=== PATIENT | male | born 1945 | race Caucasian/White ===

== ENCOUNTER 2017-06-26 16:38 | Emergency (ER) | payer MEDICARE, OTHER ==
[2017-06-26] MEDS ORDERED: TETANUS/DIPHTHERIA/PERTUSSIS 0.5 ML SYRINGE IM ONE (17:16)
[2017-06-26] MEDS ORDERED: AMOX/CLAV 875 MG/125 MG TABLET PO STA (17:16)
--- NOTE | 2017-06-26 17:22 | ED Physician Documentation ---
History of Present Illness - Stated complaint Stated Complaint: DOG BITE/R HAND - Chief complaint Chief Complaint: Wound - Additonal information Additional information: hx from pt 71 male [place] dog park by another persons immunized dog Review of Systems Skin: reports: Bite / sting PD PAST MEDICAL HISTORY - Present Medications Home Medications: Ambulatory Orders Medication Instructions Recorded Confirmed Amox/Clav 875/125 [Augmentin] 1 each PO Q12H #9 tablet 06/26/17 - Allergies Allergies/Adverse Reactions: Allergies Allergy/AdvReac Type Severity Reaction Status Date / Time No Known Drug Allergies Allergy Verified 06/26/17 16:45 PD ED PE NORMAL - Vitals Vital signs reviewed: Yes - Derm Derm: Other (1 cm bit dorsal aspect thenar region, tendon intact, MSV intact) Results - Vitals Vitals: Vital Signs - 24 hr 06/26/17 16:43 Temperature 36.4 C L Heart Rate 98 Respiratory 18 Rate Blood Pressure 146/96 H O2 Saturation 96 Oxygen O2 Source Room air PD MEDICAL DECISION MAKING - ED course ED course: wound cleansed tdap given proph augmentin wound precautions given Departure - Departure Disposition: 01 Home, Self Care Clinical Impression: Animal bite with open wound Condition: Good Instructions: ED Bite Animal General Prescriptions: Amox/Clav 875/125 [Augmentin] 1 each PO Q12H #9 tablet Comments: Keep the wound clean - wash with soap and water every day Take the augmentin twice a day for 5 days to prevent infection If signs of infection develop while you are travelling, go to an urgent care or ER for evaluation
[2017-06-26 17:50] VITALS: BP 148/100
== END 2017-06-26 17:50 | disposition home or self-care (01) ==
LOC: ED 16:38
DX: S61.451A Open bite of right hand, initial encounter (principal); W54.0XXA Bitten by dog, initial encounter; Y92.830 Public park as the place of occurrence of the external cause; Z23 Encounter for immunization
CPT/HCPCS: 90471; 90715; 99283; A9270

== ENCOUNTER 2023-09-10 21:40 | Outpatient (CLI) | payer MEDICARE, OTHER | END 2023-09-10 21:41 | disposition critical access hospital (66) | LOC: EMS 21:40 | DX: R29.898 Other symptoms and signs involving the musculoskeletal system (principal); G20.A1 Parkinson's disease without dyskinesia, without mention of fluctuations | CPT/HCPCS: A0425; A0429 ==

== ENCOUNTER 2023-09-10 22:10 | Observation (INO) | payer MEDICARE, OTHER ==
--- NOTE | 2023-09-10 22:19 | ED Physician Documentation ---
PD HPI FOCAL NEURO - Stated complaint Stated Complaint: R HAND NUMBNESS - History obtained from History obtained from: Patient - Additional information Additional information: 78-year-old male with history of Parkinson's disease, history of AAA repair, reported history of TIA presents by EMS from home for right arm weakness. Patient states that earlier this morning after eating breakfast he was in the shower when all of a sudden his right arm stopped working and he was unable to use the soap. He states that this resolved after approximately 10 minutes. Several hours went by in the day and approximately 1 hour prior to arrival jero ent had weakness in his entire right upper extremity lasting approximately 15 minutes, that then self resolved. After discussing with his they decided to call 911 for evaluation. Patient currently denies any complaints and states he feels back to his baseline. He takes daily Plavix, but does not take any other blood thinners. PD PAST MEDICAL HISTORY - Past Medical History Cardiovascular: Other - Past Surgical History Past Surgical History: No - Present Medications Home Medications: Ambulatory Orders Medication Instructions Recorded Confirmed Aspirin [Aspirin EC] 81 mg PO DAILY 09/10/23 09/10/23 Atorvastatin [Lipitor] 10 mg PO DAILY 09/10/23 09/10/23 Carbidopa/Levodopa 1 tab PO TID 09/10/23 09/10/23 [Carbidopa-Levodopa 25-100 Tab] Fluoxetine HCl [Prozac] 60 mg PO DAILY 09/10/23 09/10/23 NIFEdipine [Procardia Xl] 30 mg PO DAILY 09/10/23 09/10/23 Propranolol HCl 20 mg PO DAILY 09/10/23 09/10/23 Rivastigmine Tartrate 4.5 mg PO BID 09/10/23 09/10/23 [Rivastigmine] hydrOXYzine HCL [Hydroxyzine HCl] 25 mg PO PRN PRN 09/10/23 09/10/23 traZODone [Desyrel] 50 mg PO HS 09/10/23 09/10/23 - Allergies Allergies/Adverse Reactions: Allergies Allergy/AdvReac Type Severity Reaction Status Date / Time No Known Drug Allergies Allergy Verified 09/10/23 22:24 - Social History Does the pt smoke?: No Smoking Status: Never smoker Results - Vitals Vitals: Vital Signs - 24 hr 09/10/23 09/10/23 09/11/23 22:15 22:30 00:00 Temperature 36.8 C Heart Rate 72 81 73 Respiratory 16 16 16 Rate Blood Pressure 193/94 H 184/89 H 183/94 H O2 Saturation 96 98 96 Oxygen O2 Source Room air - Labs Labs: Laboratory Tests 09/10/23 09/10/23 09/10/23 22:10 22:10 22:28 WBC 5.8 RBC 4.43 L Hgb 14.0 Hct 42.5 MCV 95.9 H MCH 31.6 H MCHC 32.9 RDW 12.8 Plt Count 181 MPV 9.6 Neut # (Auto) 3.7 Lymph # (Auto) 1.2 L O'Brien # (Auto) 0.7 Eos # (Auto) 0.1 Baso # (Auto) 0.0 Absolute Nucleated RBC 0.00 Nucleated RBC % 0.0 PT 12.5 INR 1.1 Sodium 138 Potassium 4.0 Chloride 105 Carbon Dioxide 27 Anion Gap 6.0 BUN 28 H Creatinine 1.1 Estimated GFR (MDRD) 65 L Glucose 104 Calcium 9.2 Magnesium 2.3 Total Bilirubin 0.6 AST 14 ALT 14 Alkaline Phosphatase 90 Total Protein 7.5 Albumin 4.2 Globulin 3.3 Albumin/Globulin Ratio 1.3 PD Medical Decision Making - ED course Complexity details: reviewed old records, reviewed results, re-evaluated patient, considered differential, d/w patient ED course: Well-appearing patient with 2 episodes of transient weakness in his upper extremity. Patient describes that he was not able to use his right arm at all due to his weakness. On my exam patient's NIH score is 0, however based on concerning history he was given full dose aspirin on arrival. CT brain, CT angio negative for acute CVA. There appears to be some prior occlusion in the posterior circulation, however patient symptoms or not consistent with a posterior circulation occlusion and this is likely chronic longstanding. There has been no recurrence of his weakness since he has been in the emergency department. plan to admit patient for MRI and further evaluation. Departure - Departure Disposition: [facility] DC/Drew Clinical Impression: Right arm weakness Condition: Stable
[2023-09-10] MEDS ORDERED: iohexoL-300 100 ML VIAL ONE (22:20)
[2023-09-10 22:24] LABS: BASOPHILS % (AUTO) 0.5 %; EOSINOPHILS # (AUTO) 0.1 10^3/uL (0.0-0.7); EOSINOPHILS % (AUTO) 2.1 %; HCT - HEMATOCRIT 42.5 % (42.0-52.0); LYMPHOCYTES # (AUTO) 1.2 10^3/uL (1.5-3.5); MEAN CORPUSCULAR HEMOGLOBIN 31.6 pg (27.0-31.0); MEAN CORPUSCULAR HGB CONC 32.9 g/dL (32.0-36.0); MEAN CORPUSCULAR VOLUME 95.9 fL (80.0-94.0); MEAN PLATELET VOLUME 9.6 fL (7.4-11.4); MONOCYTES # (AUTO) 0.7 10^3/uL (0.0-1.0); MONOCYTES % (AUTO) 12.2 %; NEUTROPHILS # (AUTO) 3.7 10^3/uL (1.5-6.6); NEUTROPHILS % (AUTO) 63.9 %; PLT - PLATELET COUNT 181 10^3/uL (130-450); RED BLOOD COUNT 4.43 10^6/uL (4.70-6.10); RED CELL DISTRIBUTION WIDTH 12.8 % (12.0-15.0); WHITE BLOOD COUNT 5.8 x10^3/uL (4.8-10.8)
[2023-09-10] MEDS: ASPIRIN CHEW 81 MG TABLET PO STA (22:31)
[2023-09-10 22:42] LABS: ALBUMIN 4.2 g/dL (3.2-5.5); ALBUMIN/GLOBULIN RATIO 1.3 (1.0-2.2); BILIRUBIN,TOTAL 0.6 mg/dL (0.2-1.0); CALCIUM 9.2 mg/dL (8.5-10.3); CREATININE 1.1 mg/dL (0.6-1.3); MAGNESIUM 2.3 mg/dL (1.7-2.3); TOTAL PROTEIN 7.5 g/dL (6.4-8.9)
[2023-09-10 22:56] LABS: INR 1.1 (0.8-1.2); PT - PROTHROMBIN TIME 12.5 secs (9.9-12.6)
[2023-09-10] MEDS: iohexoL-300 100 ML VIAL IVP ONE (23:13)
--- NOTE | 2023-09-10 23:36 | XRAY Report ---
PROCEDURE: Chest 1V INDICATIONS: INTERMITTENT R ARM WEAKNESS TECHNIQUE: One view of the chest was acquired. COMPARISON: None. FINDINGS: Surgical changes and devices: None. Lungs and pleura: No pleural effusions or pneumothorax. Lungs are clear. Mediastinum: Mediastinal contours appear normal. Heart size is enlarged. Bones and chest wall: No suspicious bony lesions. Overlying soft tissues appear unremarkable. IMPRESSION: No acute cardiopulmonary process. Reviewed by: Lauren Valenzuela MD on 09/10/2023 11:35 PM PDT Approved by: Lauren Valenzuela MD on 09/10/2023 11:35 PM PDT Station ID: [id number]
--- NOTE | 2023-09-10 23:39 | CT Report ---
PROCEDURE: Head WO INDICATIONS: TRANSIENT R ARM WEAKNESS X TODAY TECHNIQUE: Noncontrast 4.5 mm thick angled axial sections acquired from the foramen magnum to the vertex. For r adiation dose reduction, the following was used: automated exposure control, adjustment of mA and/or kV according to patient size. COMPARISON: CTA head and neck 09/10/2023 FINDINGS: Image quality: Excellent. The ventricular system and cortical sulci demonstrate atrophy, consistent for patient's stated age. There are areas of hypodensity in the periventricular and subcortical white matter. There is no acut e intra or extra-axial fluid collection. No acute hemorrhage, mass lesion or midline shift. Brainst em is unremarkable. Low-attenuation is present in the right parietal occipital lobe consistent with remote infarction. Globes are symmetrical. Sinuses are aerated. Osseous structures are intact. IMPRESSION: No acute intracranial pathology. Reviewed by: Lauren Valenzuela MD on 09/10/2023 11:37 PM PDT Approved by: Lauren Valenzuela MD on 09/10/2023 11:37 PM PDT Station ID: [id number]
--- NOTE | 2023-09-10 23:42 | CT Report ---
PROCEDURE: Angio Head/Neck INDICATIONS: TRANSIENT R ARM WEAKNESS X TODAY TECHNIQUE: After the administration of intravenous contrast, 1 mm thick sections acquired from the aortic arch t hrough the [place]. 3-dimensional qzztjhm-uglsessib-vorscajwiy (MIP) and/or volume renderin g reformats were acquired of the central intracranial vasculature and neck separately. For radiation dose reduction, the following was used: automated exposure control, adjustment of mA and/or kV acco rding to patient size. CONTRAST: Omni 300, 80mls COMPARISON: None. FINDINGS: Image quality: Diagnostic. HEAD CT: See separately dictated CT head report of 09/10/2023. HEAD CT ANGIOGRAPHY: Anterior circulation: Intracranial internal carotid arteries are normal in size and flow. The flow within the paired anterior cerebral arteries is normal and symmetric. The flow within the middle cer ebral arteries is normal and symmetric. The anterior communicating artery is seen. No aneurysms are seen. Posterior circulation: Right vertebral artery dominance. The left vertebral artery becomes markedly atretic at the level of C1 and C2. Distal aspect of the V4 segment is not opacified. No priors are av ailable for comparison. Flow within the posterior cerebral arteries is normal and symmetric. Basilar artery is unremarkable. No aneurysms are seen. NECK CT ANGIOGRAPHY: Carotid system: The great vessels demonstrate a conventional anatomy as they arise from the aortic a rch. The origins of the common carotid arteries appear patent. The common carotid arteries demonstr ate normal caliber and courses. The bifurcation regions are both widely patent. The internal caroti d arteries demonstrate normal calibers and courses. Posterior circulation: The origins of the vertebral arteries both appear widely patent. The more novak perior extracranial portions of both vertebral arteries also demonstrate normal courses and calibers. They join to form a normal appearing basilar artery. Soft tissues: Visualized neck soft tissues demonstrate no suspicious abnormalities. Bones: No suspicious bony lesions. Visualized cervical spine appears normally aligned. 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 While this could be congenital atresia/hypoplasi a, occlusion of indeterminate age cannot be excluded. There are no areas of hemodynamically significant stenosis, vascular occlusion or aneurysmal dilation within the neck vasculature. The estimate of stenosis included in the report of the imaging study was calculated using the NASCET method Reviewed by: Lauren Valenzuela MD on 09/10/2023 11:41 PM PDT Approved by: Lauren Valenzuela MD on 09/10/2023 11:41 PM PDT Station ID: [id number]
[2023-09-11] MEDS ORDERED: SODIUM CHLORIDE FLUSH 0.9% 10 ML SYRINGE IVP PRN (01:51)
[2023-09-11] MEDS ORDERED: ONDANSETRON 4 MG/2 ML VIAL IVP PRN (01:51)
[2023-09-11] MEDS ORDERED: LABETALOL 20 MG/4 ML SYRINGE IVP PRN (01:54)
--- NOTE | 2023-09-11 02:03 | HISTORY & PHYSICAL EXAMINATION ---
Chief Complaint - Chief Complaint Chief Complaint: right arm weakness History of Present Illness - Admitted From Admitted From:: home - History Obtained From History obtained from: patient Exam Limitations: telemedicine - History of Present Illness HPI Comment/Other: Mr Nick is a 78 yo M with history of Parkinson's disease, AAA repair, TIA (per chart review, patient denies any history of CVA). He presents to the ER for evaluation of right arm weakness. First episode occurred in the morning, after breakfast, felt like his right arm was weak and he could not move it, lasted approximately ~10 min. He had a second episode later in the afternoon, same right arm weakness, lasted approximately 15 minutes. He denies any numbness/weakness in any other extremities. Denies any residual RUE weakness/numbness/tingling at this time. He denies headaches, dizziness, vision changes, blurry vision. Reports history of migraine headaches, have never been associated with extremity weakness/numbness. Denies any recent fevers, chills, cough, n/v. History - Past Medical History Cardiovascular: reports: Other Neuro: reports: TIA, Parkinson's - Past Surgical History Cardiovascular: reports: AAA Meds/Allgy - Home Medications Home Medications: Ambulatory Orders Medication Instructions Recorded Confirmed Aspirin [Aspirin EC] 81 mg PO DAILY 09/10/23 09/10/23 Atorvastatin [Lipitor] 10 mg PO DAILY 09/10/23 09/10/23 Carbidopa/Levodopa 1 tab PO TID 09/10/23 09/10/23 [Carbidopa-Levodopa 25-100 Tab] Fluoxetine HCl [Prozac] 60 mg PO DAILY 09/10/23 09/10/23 NIFEdipine [Procardia Xl] 30 mg PO DAILY 09/10/23 09/10/23 Propranolol HCl 20 mg PO DAILY 09/10/23 09/10/23 Rivastigmine Tartrate 4.5 mg PO BID 09/10/23 09/10/23 [Rivastigmine] hydrOXYzine HCL [Hydroxyzine HCl] 25 mg PO PRN PRN 09/10/23 09/10/23 traZODone [Desyrel] 50 mg PO HS 09/10/23 09/10/23 - Allergies Allergies/Adverse Reactions: Allergies Allergy/AdvReac Type Severity Reaction Status Date / Time No Known Drug Allergies Allergy Verified 09/10/23 22:24 Review of Systems - Constitutional Constitutional: denies: Fatigue, Fever, Chills, Malaise - Eyes Eyes: denies: Blurred vision, Vision loss, Dipolpia - Ears, Nose & Throat Ears, Nose & Throat: denies: Hearing loss - Cardiovascular Cariovascular: denies: Chest pain, Lightheadedness - Respiratory Respiratory: denies: Cough, Sputum production - Gastrointestinal Gastrointestinal: denies: Abdominal pain, Nausea, Vomiting - Musculoskeletal Musculoskeletal: denies: Muscle pain, Back pain, Muscle aches - Integumentary Integumentary: denies: Rash, Pruritis - Neurological Neurological: reports: Focal weakness (RUE, resolved). denies: General weakness, Headache, Dizziness, Numbness - All Other Systems All Other Systems: reports: Reviewed and negative Exam - Vital Signs Reviewed Vital Signs: Yes Vital Signs: Vital Signs x48h Temp Pulse Resp BP Pulse Ox 09/11/23 00:00 73 16 183/94 H 96 09/10/23 22:30 81 16 184/89 H 98 09/10/23 22:15 36.8 C 72 16 193/94 H 96 - Physical Exam General Appearance: positive: No acute distress Eyes Bilateral: positive: Normal inspection Neck: positive: Nml inspection Respiratory: positive: No respiratory distress Back: positive: Nml inspection Skin: positive: Color nml, No rash Neurologic/Psychiatric: positive: Oriented x3, Motor nml (per patient), Sensation nml (per patient), Mood/affect nml Conclusion/Plan - Lab Results Lab results reviewed: Yes Fish Bones: 09/10/23 22:10 09/10/23 22:10 - Diagnostic Imaging Results Diagnostic Imaging Results: positive: Final report reviewed - EKG Results EKG Interpreted Independently: Yes EKG Findings: NSR 73 bpm - Other Other Results/Comments: RUE weakness, transient, resolved -Patient reports 2 episodes, ~10-15 min each with complete resolution -Current NIH 0 (per ER provider exam) -CT head unremarkable -CTA head/neck with occlusion of indeterminate age at distal C4 segment, 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
[2023-09-11] MEDS: ACETAMINOPHEN 325 MG TABLET PO PRN (03:17)
[2023-09-11] MEDS: traZODone 50 MG TABLET PO SCH (04:10)
[2023-09-11] MEDS: CARBIDOPA/LEVODOPA 25 MG/100 MG TABLET PO SCH (06:17)
[2023-09-11] MEDS: ASPIRIN 325 MG TABLET PO SCH (10:25)
[2023-09-11] MEDS: PROPRANOLOL 10 MG TABLET PO SCH (10:25)
[2023-09-11] MEDS: FLUoxetine 10 MG CAPSULE PO SCH (10:25)
[2023-09-11] MEDS: ENOXAPARIN 40 MG/0.4 ML SYRINGE SUBQ SCH (10:26)
[2023-09-11] MEDS: SODIUM CHLORIDE FLUSH 0.9% 10 ML SYRINGE IVP SCH (10:26)
[2023-09-11] MEDS: RIVASTIGMINE TARTRATE 1.5 MG PO SCH (10:29)
--- NOTE | 2023-09-11 12:30 | PHARMACY PROGRESS NOTE ---
- Best Possible Medication History Admit Date and Time: 09/11/23 0151 Processed by: Pharmacy Medications reviewed in ED?: Yes Medication History completed: Yes Patient Interview: Pt unable to participate Secondary Source(s): Insurance records (PT UNABLE TO PARTICIPATE. PT UNSURE OF MEDICATIONS. MED HX COMPELTED BASED OFF OF FILL HX.) As the person ultimately responsible for medication therapy, providers are able to order a medication from an existing home medication list in [facility] via the "Reconcile Routine" prior to Confirmation of that medication by direct support staff. Such practice is discouraged except when the physician, in their clinical judgment, deems that a medical need exists for a medication without regard to previous use.
[2023-09-11] MEDS: polyethylene glycoL 3350 17 GM PACKET PO SCH (16:27)
[2023-09-11] MEDS: SENNA 8.6 MG TABLET PO SCH (16:27)
[2023-09-11] MEDS: DOCUSATE SODIUM 250 MG CAPSULE PO SCH (16:28)
[2023-09-11] MEDS: lisinopriL 20 MG TABLET PO SCH (18:50)
--- NOTE | 2023-09-11 19:25 | MRI Report ---
PROCEDURE: Brain WO INDICATIONS: transient RUE weakness, please evaluate for CVA TECHNIQUE: Noncontrast axial T1 spin echo, axial T2 fast spin echo, sagittal and axial FLAIR, coronal T2 fast sp in echo, axial gradient echo, axial diffusion and ADC through the brain. COMPARISON: Correlation is made with CT examinations, 09/10/2023. FINDINGS: Image quality: Diagnostic, with note made of motion artifact. CSF Spaces: Basal cisterns are patent. No extra-axial fluid collections. Ventricles are normal in size and shape. Brain: No intracranial masses or hemorrhage. [place]/white matter interface is normal. Brainstem appe ars normal. Diffusion-weighted images demonstrate no acute ischemic insult. No chronic ischemic ins ults. Normal intravascular flow voids are present. Prominent perivascular spaces are incidentally n oted. Age-appropriate brain parenchymal volume loss and chronic small vessel ischemic change can be seen. Skull and face: Calvarium has normal marrow signal. Orbits appear normal. Sinuses: Sinuses and mastoids are clear. IMPRESSION: No findings of acute or subacute infarction are seen. Age-appropriate brain parenchymal volume loss and chronic small vessel ischemic change can be seen. Reviewed by: Ramiro Ceron MD on 09/11/2023 6:23 PM VETO Approved by: Ramiro Ceron MD on 09/11/2023 6:23 PM VETO Station ID: [id number]
[2023-09-11] MEDS ORDERED: traZODone 50 MG TABLET PO SCH (21:00)
[2023-09-11] MEDS: ATORVASTATIN 40 MG TABLET PO SCH (21:14)
[2023-09-12] MEDS: NIFEdipine ER 30 MG TABLET PO SCH (08:07)
[2023-09-12 08:19] VITALS: O2SAT 96
--- NOTE | 2023-09-12 08:36 | DISCHARGE SUMMARY ---
Discharge Summary Admit Date: 09/11/23 Discharge Date: 09/12/23 Discharging Provider: Korey Leblanc MD Primary Care Provider: Larry Ewing Code Status: Attempt Resuscitation Condition at Discharge: Stable Discharge Disposition: Home, Self Care Discharge Facility [facility]: [facility] - DIAGNOSES Admission Diagnoses: 1. Right Arm Weakness Discharge Diagnoses with Status of Each Condition: 1. Transient ischemic attack 2. Hypertension 3. Parkinson's dise - HPI History of Present Illness: History of Present Illness per Dr. Adam Beckwith history: Mr Nick is a 78 yo M with history of Parkinson's disease, AAA repair, TIA (per chart review, patient denies any history of CVA). He presents to the ER for evaluation of right arm weakness. First episode occurred in the morning, after breakfast, felt like his right arm was weak and he could not move it, lasted approximately ~10 min. He had a second episode later in the afternoon, same right arm weakness, lasted approximately 15 minutes. He denies any numbness/weakness in any other extremities. Denies any residual RUE weakness/numbness/tingling at this time. He denies headaches, dizziness, vision changes, blurry vision. Reports history of migraine headaches, have never been associated with extremity weakness/numbness. Denies any recent fevers, chills, cough, n/v. - HOSPITAL COURSE Hospital Course: Patient was admitted to the hospital under observation status. CT scan of the head revealed no significant abnormality. CT angiogram revealed a atretic appearance of the left vertebral artery at C1-C2 level with nonvisualized opaci fication at distal C4 segment of the left vertebral artery. Differential diagnosis would include congenital atresia/hypoplasia and occlusion of indeterminate age. There were no areas of hemodynamically significant stenosis, vascular occlusion or aneurysmal dilatation. MRI of the brain did not reveal any acute or subacute infarction. Treatment for hypertension was continued with patient's outpatient dose of nifedipine and and lisinopril. Telemetry did not reveal any significant arrhythmia. EKG demonstrated sinus rhythm prolonged HI interval. - ALLERGIES Allergies/Adverse Reactions: Allergies Allergy/AdvReac Type Severity Reaction Status Date / Time No Known Drug Allergies Allergy Verified 09/10/23 22:24 - MEDICATIONS Home Medications: Ambulatory Orders Medication Instructions Recorded Confirmed Aspirin [Aspirin EC] 81 mg PO DAILY 09/10/23 09/11/23 Atorvastatin [Lipitor] 10 mg PO DAILY 09/10/23 09/11/23 Carbidopa/Levodopa 1 tab PO TID 09/10/23 09/11/23 [Carbidopa-Levodopa 25-100 Tab] Fluoxetine HCl [Prozac] 60 mg PO DAILY 09/10/23 09/11/23 NIFEdipine [Procardia Xl] 30 mg PO DAILY 09/10/23 09/11/23 Propranolol HCl 20 mg PO DAILY 09/10/23 09/11/23 Rivastigmine Tartrate 4.5 mg PO BID 09/10/23 09/11/23 [Rivastigmine] traZODone [Desyrel] 50 mg PO HS 09/10/23 09/11/23 Lisinopril [Zestril] 40 mg PO DAILY 09/11/23 09/11/23 Atorvastatin [Lipitor] 40 mg PO QPM #30 tab 09/12/23 Clopidogrel [Plavix] 75 mg PO DAILY #21 tab 09/12/23 - PHYSICAL EXAM AT DISCHARGE General Appearance: positive: No acute distress, Alert Neck: positive: Thyroid nml, No JVD, Trachea midline Respiratory: positive: No respiratory distress, Breath sounds nml Cardiovascular: positive: Regular rate & rhythm, No murmur Skin: positive: No rash Extremities: positive: No pedal edema - LABS Result Diagrams: 09/10/23 22:10 09/10/23 22:10 - FOLLOW UP Follow Up: Please follow-up with Dr. Larry Ewing - TIME SPENT Time Spent in Discharge (Minutes): 28
--- NOTE | 2023-09-12 08:36 | Discharge Plan ---
Discharge Plan Problem Reviewed?: Yes Disposition: Home, Self Care Condition: Stable Prescriptions: Atorvastatin [Lipitor] 40 mg PO QPM #30 tab Clopidogrel [Plavix] 75 mg PO DAILY #21 tab Diet: Regular Activity Restrictions: Activity as Tolerated Shower Restrictions: Yes Driving Restrictions: Yes Weight Bearing: Full Weight Instruction Topics: TIA Health Concerns: History of Present Illness per Dr. Adam Beckwith history: Mr Nick is a 78 yo M with history of Parkinson's disease, AAA repair, TIA (per chart review, patient denies any history of CVA). He presents to the ER for evaluation of right arm weakness. First episode occurred in the morning, after breakfast, felt like his right arm was weak and he could not move it, lasted approximately ~10 min. He had a second episode later in the afternoon, same right arm weakness, lasted approximately 15 minutes. He denies any numbness/we akness in any other extremities. Denies any residual RUE weakness/numbness/tingling at this time. He denies headaches, dizziness, vision changes, blurry vision. Reports history of migraine headaches, have never been associated with extremity weakness/numbness. Denies any recent fevers, chills, cough, n/v. Hospital Course: Patient was admitted to the hospital under observation status. CT scan of the head revealed no significant abnormality. CT angiogram revealed a atretic appearance of the left vertebral artery at C1-C2 level with nonvisualized opacification at distal C4 segment of the left vertebral artery. Differential diagnosis would include congenital atresia/hypoplasia and occlusion of indeterminate age. There were no areas of hemodynamically significant stenosis, vascular occlusion or aneurysmal dilatation. MRI of the brain did not reveal any acute or subacute infarction. Treatment for hypertension was continued with patient's outpatient dose of nifedipine and and lisinopril. Telemetry did not reveal any significant arrhythmia. EKG demonstrated sinus rhythm prolonged PA interval. Plan of Treatment: 1. Continue all medications as directed. 2. Please follow-up with your primary care provider. 3. Given findings on CT angiogram, recommend consultation with neurology as an outpatient. Care Goals: Goal of care is to return to baseline function. Assessment: 1. Transient ischemic attack Comments plan: CT angiogram revealed an atrophic appearance of the left vertebral artery at the level of C1-C2 with nonvisualized opacification of the distal C4 segment of the left vertebral artery. Differential diagnosis would include congenital atresia/hypoplasia and occlusion of indeterminate age. EKG and telemetry revealed sinus rhythm. Patient has been on aspirin and given findings on CT scan, Plavix was initiated for 21 days. Would consider continuing Plavix indefinitely. Recommend neurology consult. 2. Hypertension Comments plan: Continue nifedipine, propranolol and lisinopril. 3. Parkinson's disease Comments plan: Continue Sinemet and rivastigmine No Smoking: If you smoke, Please STOP! Call for help.
[2023-09-12] MEDS: CLOPIDOGREL 75 MG TABLET PO SCH (08:55)
[2023-09-12] MEDS ORDERED: polyethylene glycoL 3350 17 GM PACKET PO SCH (09:00)
[2023-09-12] MEDS ORDERED: SENNA 8.6 MG TABLET PO SCH (09:00)
[2023-09-12] MEDS ORDERED: DOCUSATE SODIUM 250 MG CAPSULE PO SCH (09:00)
[2023-09-12 11:37] VITALS: BP 123/70
== END 2023-09-12 13:03 | disposition home or self-care (01) ==
LOC: EDUNIT# → ED 22:10 → MS2 09-11 01:51
PROVIDERS: ADMIT Student in an Organized Health Care Education/Training Program; ATTEND Internal Medicine
DX: G45.9 Transient cerebral ischemic attack, unspecified (principal); Q28.1 Other malformations of precerebral vessels; G20.A1 Parkinson's disease without dyskinesia, without mention of fluctuations; R20.0 Anesthesia of skin; R29.898 Other symptoms and signs involving the musculoskeletal system; Z79.02 Long term (current) use of antithrombotics/antiplatelets; Z79.82 Long term (current) use of aspirin; Z79.899 Other long term (current) drug therapy
CPT/HCPCS: 36415; 70450; 70496; 70498; 70551; 71045; 80053; 83735; 85025; 85610; 93005; 96372; 99283; 99285; A9270; G0378; J1650; Q9967